=== PATIENT | male | born 1945 | race Hispanic/Latino ===

== ENCOUNTER 2019-04-28 11:23 | Inpatient (IN) | payer MEDICARE ==
[2019-04-28] MEDS ORDERED: SODIUM CHLORIDE 0.9% 500 ML 500 ML IV ONE (12:10)
[2019-04-28] MEDS ORDERED: IPRATROPIUM 0.02% NEBU 2.5 ML IH ONE (12:17)
[2019-04-28] MEDS ORDERED: ALBUTEROL 2.5 MG/3 ML NEBU IH ONE (12:17)
[2019-04-28] MEDS ORDERED: methylPREDNISolone Sod Succinate 125 MG/2 ML INJ IV ONE (12:17)
[2019-04-28 13:03] LABS: Basophils % (Auto) 0.7 % (0.0-1.8); Eosinophils # (Auto) 0.3 K/mm3 (0.0-0.4); Hematocrit 29.1 % (35.5-45.6); Hemoglobin 9.4 gm/dl (11.8-15.2); Lymphocytes # (Auto) 1.1 K/mm3 (1.2-5.4); Lymphocytes % (Auto) 16.3 % (13.4-35.0); Mean Corpuscular HGB Conc 32 % (32-34); Mean Corpuscular Volume 85 fl (84-94); Monocytes # (Auto) 0.5 K/mm3 (0.0-0.8); Monocytes % (Auto) 7.7 % (0.0-7.3); Platelet Count 250 K/mm3 (140-440); Red Blood Count 3.42 M/mm3 (3.65-5.03); Red Cell Distribution Width 19.5 % (13.2-15.2)
[2019-04-28 13:14] LABS: Partial Thromboplastin Time 37.9 Sec. (24.2-36.6)
[2019-04-28 13:15] LABS: Alanine Aminotransferase 11 units/L (7-56); Albumin 4.1 g/dL (3.9-5); BUN/Creatinine Ratio 49; Blood Urea Nitrogen 34 mg/dL (9-20); Calcium 9.8 mg/dL (8.4-10.2); Hemolysis Index 3; INR 1.03 (0.87-1.13)
[2019-04-28] MEDS ORDERED: cefTRIAXone/NS 1 GM/50 ML 1 GM/50 ML BAG IV ONE (13:23)
--- NOTE | 2019-04-28 14:24 | XRay Report ---
CHEST 1 VIEW INDICATION: possible Sepsis. Shortness of breath and chest pain. COMPARISON: None FINDINGS: Support devices: None. Heart: Within normal limits. Lungs/Pleura: No acute air space or interstitial disease. The right costophrenic angle is not include d on this film. Additional findings: None. IMPRESSION: No acute findings. Signer Name: Rommel Pollack Jr, MD Signed: 04/28/2019 2:19 PM Workstation Name: [id number]
--- NOTE | 2019-04-28 14:58 | Cat Scan Report ---
CTA CHEST WITH CONTRAST INDICATION : Pain. TECHNIQUE: Axial imaging performed through the chest, with contrast bolus timing set to maximize opa cification of the pulmonary arteries. Sagittal and coronal reformatted images. 3-plane MIP reformatte d images were obtained. All CT scans at this location are performed using CT dose reduction for ALAR A by means of automated exposure control. 100 mL of intravenous contrast administered. COMPARISON: None FINDINGS: Bolus: Contrast bolus is suboptimal. Most of the IV contrast is present within the aorta. No large c entral pulmonary embolus is identified. Mediastinum: Heart size is within normal limits. Moderate coronary artery calcifications are identif ied. Small pericardial effusion. Moderate aortic calcifications are noted. No aneurysm or dissection . No pathologic mediastinal adenopathy. Calcified right hilar lymph nodes are noted consistent with c hronic granulomatous disease. Lungs: The lungs are clear. No evidence for infiltrate, pleural effusion or pneumothorax. Bones: Degenerative changes in the spine with nothing acute. Upper abdomen: Limited imaging of the upper abdomen shows nothing acute. IMPRESSION: Limited exam. No large central pulmonary embolus is identified. Small pulmonary emboli in the distal small pulmonary arteries cannot be excluded. Small pericardial effusion. Lungs clear. Signer Name: Rommel Pollack Jr, MD Signed: 04/28/2019 2:54 PM Workstation Name: [id number]
[2019-04-28] MEDS ORDERED: ACETAMINOPHEN 325 MG TAB PO PRN ×2 (15:10→20:50)
[2019-04-28] MEDS ORDERED: ONDANSETRON 4 MG/2 ML INJ IV PRN ×2 (15:10→20:50)
[2019-04-28] MEDS ORDERED: HEPARIN 10,000 UNITS/10 ML VIAL IV ONE (15:10)
[2019-04-28 15:11] LABS: Bilirubin,Urine NEG (Negative); Blood,Urine NEG (Negative); Color,Urine Straw (Yellow); Mucus,Urine FEW /HPF; Protein,Urine <15 mg/dL mg/dL (Negative); Urobilinogen,Urine < 2.0 mg/dL (<2.0)
[2019-04-28] MEDS ORDERED: oxyCODONE /ACETAMINOPHEN 5-325MG TAB PO ONE (15:13)
--- NOTE | 2019-04-28 15:14 | Emergency Department Report ---
ED Shortness of Breath HPI - General Chief Complaint: Dyspnea/Respdistress Stated Complaint: TROY Time Seen by Provider: 04/28/19 11:55 Source: patient, EMS Mode of arrival: Stretcher Limitations: Physical Limitation - History of Present Illness Initial Comments: Reports recent ortho knee surgery approximately 1 month ago. MD Complaint: shortness of breath -: Gradual, week(s) (reports worsening. Reports recently treated for same approximately 1 week ago for a presumptive bronchitis which symptoms improved only mildly and then returned. ) Severity: severe Pain Scale: 8 Consistency: other (worsening) Improves With: bronchodilators Worsens With: exertion Context: other (recent surgery) Associated Symptoms: cough, sputum production, other (edema) - Related Data Home Medications Medication Instructions Recorded Confirmed Last Taken AtorvaSTATin [Lipitor] 40 mg PO QHS 04/28/19 04/28/19 Unknown Bisacodyl 10 mg RC QDAY 04/28/19 04/28/19 Unknown Cholecalciferol Vit D3 [Vitamin D3 1,000 unit PO QDAY 04/28/19 04/28/19 Unknown 1,000 UNIT TAB] Clopidogrel [Plavix] 75 mg PO QDAY 04/28/19 04/28/19 Unknown Cyanocobalamin [Vitamin B-12] 1,000 mcg PO DAILY 04/28/19 04/28/19 Unknown Finasteride 5 mg PO QDAY 04/28/19 04/28/19 Unknown Furosemide [Lasix TAB] 40 mg PO QDAY 04/28/19 04/28/19 Unknown Lisinopril [Zestril] 5 mg PO QHS 04/28/19 04/28/19 Unknown Metoprolol [Lopressor] 25 mg PO BID 04/28/19 04/28/19 Unknown Oxycodone HCl/Acetaminophen 1 each PO Q4H PRN 04/28/19 04/28/19 Unknown [Percocet 10/325 mg] Polyethylene Glycol 3350 [Miralax] 17 gm PO QDAY 04/28/19 04/28/19 Unknown Sennosides/Docusate Sodium 1 each PO BID 04/28/19 04/28/19 Unknown [Docuzen 8.6-50 mg Tablet] Tamsulosin [Flomax] 0.4 mg PO QDAY 04/28/19 04/28/19 Unknown Triamterene/Hydrochlorothiazid 1 each PO QAM 04/28/19 04/28/19 Unknown [Dyazide 37.5-25 Capsule] Triamterene/Hydrochlorothiazid 1 each PO QAM 04/28/19 04/28/19 Unknown [Dyazide 37.5-25 Capsule] Ubidecarenone [Coq-10] 200 mg PO QDAY 04/28/19 04/28/19 Unknown glipiZIDE [Glucotrol] 10 mg PO BID 04/28/19 04/28/19 Unknown metFORMIN [Glucophage] 500 mg PO BID 04/28/19 04/28/19 Unknown Allergies Allergy/AdvReac Type Severity Reaction Status Date / Time fentanyl Allergy Vomiting Verified 04/28/19 11:40 gabapentin Allergy Unknown Verified 04/28/19 11:40 ketorolac [From Toradol] Allergy Anaphylaxis Verified 04/28/19 11:40 ED Review of Systems ROS: Stated complaint: TROY Other details as noted in HPI Other: GENERAL: No weight change, fatigue, fever, chills, or night sweats SKIN: No changes in skin or hair, no itching, no rashes, no jaundice HEAD: No trauma EYES: No blurriness, tearing, itching, acute visual loss, conjunctival discoloration, or scleral icterus EARS: No hearing loss, tinnitus, vertigo, or earache NOSE: No rhinorrhea, stuffiness, sneezing, itching, or epistaxis MOUTH: No bleeding gums, hoarseness, sore throat, or swelling CARDIAC: Edema. No new murmur, chest pain, palpitations, dyspnea on exertion, orthopnea, PND RESPIRATORY: Shortness of breath, wheeze, cough, sputum production. Denies hemoptysis GI: No nausea, vomiting, dysphagia, diarrhea, constipation, hematemesis, melena, hematochezia, or abdominal pain URINARY: No frequency, urgency, polyuria, dysuria, hematuria, or incontinence MUSCULOSKELETAL: No muscle weakness, joint stiffness, decrease in range of motion, redness, swelling NEUROLOGIC: No headache, syncope, loss of sensation, numbness, tingling, tremors, weakness, paralysis, seizures HEMATOLOGIC: No anemia, easy bruising, bleeding, petechiae, or purpura ENDOCRINE: No hot or cold intolerance, sweating, polyuria, polydipsia or, prashant yphagia no thyroid problems PSYCHIATRIC: No change in mood, no anxiety, no depression ED Past Medical Hx - Past Medical History Previous Medical History?: Yes Hx Hypertension: Yes Hx Diabetes: Yes Additional medical history: AAA - Surgical History Past Surgical History?: Yes Additional Surgical History: L4-L5 sx. multiple bilateral knee replacements. Most recent to right knee on 04/11/19. - Social History Smoking Status: Former Smoker Substance Use Type: None - Medications Home Medications: Home Medications Medication Instructions Recorded Confirmed Last Taken Type AtorvaSTATin [Lipitor] 40 mg PO QHS 04/28/19 04/28/19 Unknown History Bisacodyl 10 mg RC QDAY 04/28/19 04/28/19 Unknown History Cholecalciferol Vit D3 [Vitamin D3 1,000 unit PO QDAY 04/28/19 04/28/19 Unknown History 1,000 UNIT TAB] Clopidogrel [Plavix] 75 mg PO QDAY 04/28/19 04/28/19 Unknown History Cyanocobalamin [Vitamin B-12] 1,000 mcg PO DAILY 04/28/19 04/28/19 Unknown History Finasteride 5 mg PO QDAY 04/28/19 04/28/19 Unknown History Furosemide [Lasix TAB] 40 mg PO QDAY 04/28/19 04/28/19 Unknown History Lisinopril [Zestril] 5 mg PO QHS 04/28/19 04/28/19 Unknown History Metoprolol [Lopressor] 25 mg PO BID 04/28/19 04/28/19 Unknown History Oxycodone HCl/Acetaminophen 1 each PO Q4H PRN 04/28/19 04/28/19 Unknown History [Percocet 10/325 mg] Polyethylene Glycol 3350 [Miralax] 17 gm PO QDAY 04/28/19 04/28/19 Unknown History Sennosides/Docusate Sodium 1 each PO BID 04/28/19 04/28/19 Unknown History [Docuzen 8.6-50 mg Tablet] Tamsulosin [Flomax] 0.4 mg PO QDAY 04/28/19 04/28/19 Unknown History Triamterene/Hydrochlorothiazid 1 each PO QAM 04/28/19 04/28/19 Unknown History [Dyazide 37.5-25 Capsule] Triamterene/Hydrochlorothiazid 1 each PO QAM 04/28/19 04/28/19 Unknown History [Dyazide 37.5-25 Capsule] Ubidecarenone [Coq-10] 200 mg PO QDAY 04/28/19 04/28/19 Unknown History glipiZIDE [Glucotrol] 10 mg PO BID 04/28/19 04/28/19 Unknown History metFORMIN [Glucophage] 500 mg PO BID 04/28/19 04/28/19 Unknown History ED Physical Exam - General Limitations: Physical Limitation - Other Other exam information: GENERAL: Patient in acute distress HEAD: Normocephalic, atraumatic EYES: PERRLA, EOM intact, no scleral icterus, no conjunctival hemorrhage, visual alcocer and acuity wnl NOSE: No tenderness, discharge, sinus tenderness MOUTH: No erythema, bleeding, exudate HEART: Tachycardia, no murmur, S1-S2 are auscultated, no edema, pulses are symmetric LUNGS: mild respiratory distress. Bilateral breath sounds, tachypnea, mild retractions, mild wheezing, rales, No rhonchi ABDOMEN: Normal bowel sounds, abdomen soft, no tenderness, no rebound, no guarding, no distention, no masses, no CVA tenderness MUSCULOSKELETAL: Normal joint range of motion, no redness, no swelling, no tenderness NEUROLOGIC: GCS 15, Alert and Oriented x3, Cranial nerves intact, normal sensation, normal strength, no cerebellar deficit, NIHSS 0 SKIN: Skin is warm and dry, no wounds, no rashes ED Course Vital Signs 04/28/19 04/28/19 04/28/19 11:37 11:40 11:46 Temperature 98.1 F Pulse Rate 112 H 111 H 107 H Pulse Rate [ Bilateral Throughout] Respiratory 15 14 13 Rate Respiratory Rate [Bilateral Throughout] Blood Pressure 121/59 121/59 O2 Sat by Pulse 96 92 95 Oximetry 04/28/19 04/28/19 04/28/19 11:56 12:00 12:10 Temperature Pulse Rate 107 H 106 H Pulse Rate [ Bilateral Throughout] Respiratory 13 16 21 Rate Respiratory Rate [Bilateral Throughout] Blood Pressure 99/59 89/59 O2 Sat by Pulse 96 95 95 Oximetry 04/28/19 04/28/19 04/28/19 12:20 12:29 12:30 Temperature Pulse Rate 110 H 109 H Pulse Rate [ 108 H Bilateral Throughout] Respiratory 20 22 Rate Respiratory 18 Rate [Bilateral Throughout] Blood Pressure 89/59 89/62 O2 Sat by Pulse 93 94 Oximetry 04/28/19 04/28/19 04/28/19 12:40 12:50 13:00 Temperature Pulse Rate 106 H 104 H 107 H Pulse Rate [ Bilateral Throughout] Respiratory 22 19 21 Rate Respiratory Rate [Bilateral Throughout] Blood Pressure 115/63 104/60 94/60 O2 Sat by Pulse 97 96 97 Oximetry 04/28/19 04/28/19 04/28/19 13:10 13:20 13:30 Temperature Pulse Rate 109 H 108 H 106 H Pulse Rate [ Bilateral Throughout] Respiratory 16 17 14 Rate Respiratory Rate [Bilateral Throughout] Blood Pressure 104/56 101/48 89/53 O2 Sat by Pulse 98 98 98 Oximetry 04/28/19 04/28/19 04/28/19 13:40 13:50 14:00 Temperature Pulse Rate 109 H 100 H 99 H Pulse Rate [ Bilateral Throughout] Respiratory 13 24 20 Rate Respiratory Rate [Bilateral Throughout] Blood Pressure 100/52 109/52 109/48 O2 Sat by Pulse 97 93 96 Oximetry 04/28/19 04/28/19 04/28/19 14:36 14:46 15:00 Temperature Pulse Rate 102 H 104 H 105 H Pulse Rate [ Bilateral Throughout] Respiratory 20 17 Rate Respiratory Rate [Bilateral Throughout] Blood Pressure 118/55 135/90 133/65 O2 Sat by Pulse 98 95 Oximetry 04/28/19 04/28/19 04/28/19 15:15 15:30 15:45 Temperature Pulse Rate 99 H 97 H 100 H Pulse Rate [ Bilateral Throughout] Respiratory 16 21 20 Rate Respiratory Rate [Bilateral Throughout] Blood Pressure 116/61 128/59 121/66 O2 Sat by Pulse 94 95 94 Oximetry 04/28/19 04/28/19 04/28/19 16:00 16:15 16:30 Temperature Pulse Rate 102 H 103 H 102 H Pulse Rate [ Bilateral Throughout] Respiratory 19 17 19 Rate Respiratory Rate [Bilateral Throughout] Blood Pressure 123/64 126/61 136/66 O2 Sat by Pulse 97 94 94 Oximetry 04/28/19 04/28/19 16:45 17:00 Temperature Pulse Rate 108 H 106 H Pulse Rate [ Bilateral Throughout] Respiratory 15 14 Rate Respiratory Rate [Bilateral Throughout] Blood Pressure 142/61 116/59 O2 Sat by Pulse 97 96 Oximetry ED Medical Decision Making - Lab Data Result diagrams: 04/29/19 03:53 04/29/19 03:53 Laboratory Tests 04/28/19 04/28/19 04/28/19 12:17 12:17 12:17 WBC 7.0 RBC 3.42 L Hgb 9.4 L Hct 29.1 L MCV 85 MCH 27 L MCHC 32 RDW 19.5 H Plt Count 250 Lymph % (Auto) 16.3 [place] % (Auto) 7.7 H Eos % (Auto) 4.0 Baso % (Auto) 0.7 Lymph # 1.1 L [place]itt # 0.5 Eos # 0.3 Baso # 0.0 Seg Neutrophils % 71.3 H Seg Neutrophils # 5.0 PT 13.4 INR 1.03 APTT 37.9 H POC ABG pH POC ABG pCO2 POC ABG pO2 POC ABG HCO3 POC ABG Total CO2 POC ABG O2 Sat POC ABG Base Excess VBG pH FiO2 Sodium 135 L Potassium 4.5 Chloride 92.2 L Carbon Dioxide 28 Anion Gap 19 BUN 34 H Creatinine 0.7 L Estimated GFR > 60 BUN/Creatinine Ratio 49 Glucose 177 H Hemoglobin A1c Lactic Acid Calcium 9.8 Total Bilirubin 0.40 AST 10 ALT 11 Alkaline Phosphatase 84 Troponin T NT-Pro-B Natriuret Pep Total Protein 7.8 Albumin 4.1 Albumin/Globulin Ratio 1.1 Urine Color Urine Turbidity Urine pH Ur Specific [place] Urine Protein Urine Glucose (UA) Urine Ketones Urine Blood Urine Nitrite Urine Bilirubin Urine Urobilinogen Ur Leukocyte Esterase Urine WBC (Auto) Urine RBC (Auto) U Epithel Cells (Auto) Urine Mucus 04/28/19 04/28/19 04/28/19 12:17 12:17 12:17 WBC RBC Hgb Hct MCV MCH MCHC RDW Plt Count Lymph % (Auto) [place] % (Auto) Eos % (Auto) Baso % (Auto) Lymph # [place] # Eos # Baso # Seg Neutrophils % Seg Neutrophils # PT INR APTT POC ABG pH POC ABG pCO2 POC ABG pO2 POC ABG HCO3 POC ABG Total CO2 POC ABG O2 Sat POC ABG Base Excess VBG pH 7.373 FiO2 Sodium Potassium Chloride Carbon Dioxide Anion Gap BUN Creatinine Estimated GFR BUN/Creatinine Ratio Glucose Hemoglobin A1c 6.2 H Lactic Acid 2.20 H* Calcium Total Bilirubin AST ALT Alkaline Phosphatase Troponin T NT-Pro-B Natriuret Pep Total Protein Albumin Albumin/Globulin Ratio Urine Color Urine Turbidity Urine pH Ur Specific [place] Urine Protein Urine Glucose (UA) Urine Ketones Urine Blood Urine Nitrite Urine Bilirubin Urine Urobilinogen Ur Leukocyte Esterase Urine WBC (Auto) Urine RBC (Auto) U Epithel Cells (Auto) Urine Mucus 04/28/19 04/28/19 04/28/19 12:29 13:00 14:43 WBC RBC Hgb Hct MCV MCH MCHC RDW Plt Count Lymph % (Auto) [place] % (Auto) Eos % (Auto) Baso % (Auto) Lymph # [place] # Eos # Baso # Seg Neutrophils % Seg Neutrophils # PT INR APTT POC ABG pH 7.430 POC ABG pCO2 47.1 H POC ABG pO2 76 L POC ABG HCO3 31.2 POC ABG Total CO2 33 POC ABG O2 Sat 95 POC ABG Base Excess 7 VBG pH FiO2 28 Sodium Potassium Chloride Carbon Dioxide Anion Gap BUN Creatinine Estimated GFR BUN/Creatinine Ratio Glucose Hemoglobin A1c Lactic Acid 2.40 H* Calcium Total Bilirubin AST ALT Alkaline Phosphatase Troponin T < 0.010 NT-Pro-B Natriuret Pep 97.70 Total Protein Albumin Albumin/Globulin Ratio Urine Color Urine Turbidity Urine pH Ur Specific [place] Urine Protein Urine Glucose (UA) Urine Ketones Urine Blood Urine Nitrite Urine Bilirubin Urine Urobilinogen Ur Leukocyte Esterase Urine WBC (Auto) Urine RBC (Auto) U Epithel Cells (Auto) Urine Mucus 04/28/19 14:49 WBC RBC Hgb Hct MCV MCH MCHC RDW Plt Count Lymph % (Auto) [place] % (Auto) Eos % (Auto) Baso % (Auto) Lymph # [place] # Eos # Baso # Seg Neutrophils % Seg Neutrophils # PT INR APTT POC ABG pH POC ABG pCO2 POC ABG pO2 POC ABG HCO3 POC ABG Total CO2 POC ABG O2 Sat POC ABG Base Excess VBG pH FiO2 Sodium Potassium Chloride Carbon Dioxide Anion Gap BUN Creatinine Estimated GFR BUN/Creatinine Ratio Glucose Hemoglobin A1c Lactic Acid Calcium Total Bilirubin AST ALT Alkaline Phosphatase Troponin T NT-Pro-B Natriuret Pep Total Protein Albumin Albumin/Globulin Ratio Urine Color Straw Urine Turbidity Clear Urine pH 6.0 Ur Specific [place] 1.048 H Urine Protein <15 mg/dl Urine Glucose (UA) Neg Urine Ketones Neg Urine Blood Neg Urine Nitrite Neg Urine Bilirubin Neg Urine Urobilinogen < 2.0 Ur Leukocyte Esterase Neg Urine WBC (Auto) 1.0 Urine RBC (Auto) 2.0 U Epithel Cells (Auto) < 1.0 Urine Mucus Few - EKG Data When compared to previous EKG there are: changes noted - Radiology Data Radiology results: report reviewed - Medical Decision Making Patient comfortable. Reports symptom improvement. Updated with results. Plan admit for further evaluation. Hospitalist updated and accepts admission. Critical Care Time: Yes Critical care time in (mins) excluding proc time.: 42 Critical care attestation.: If time is entered above; I have spent that time in minutes in the direct care of this critically ill patient, excluding procedure time. 42 ED Disposition Clinical Impression: Acute bronchospasm Pulmonary embolism Qualifiers: Pulmonary embolism type: unspecified Chronicity: acute Acute cor pulmonale presence: unspecified Qualified Code(s): I26.99 - Other pulmonary embolism without acute cor pulmonale Disposition: [id number] OP ADMIT IP TO THIS HOSP Is pt being admited?: Yes Condition: Stable
[2019-04-28] MEDS: HEPARIN/ 0.45% NACL DRIP 25,000 UNIT/500 ML BAG IV SCH (15:58)
[2019-04-28] MEDS ORDERED: NON-FORMULARY EACH (Oxycodone Hcl/Acetaminophen [Percocet 10/325 Mg] 1 EACH) PO PRN (20:46)
[2019-04-28] MEDS ORDERED: HYDROmorphone 1 MG/1 ML INJ IV PRN (20:50)
[2019-04-28] MEDS ORDERED: UBIDECARENONE 200 MG PO SCH (21:00)
--- NOTE | 2019-04-28 21:03 | History and Physical Report ---
History of Present Illness Date of examination: 04/28/19 Date of admission: 04/28/19 15:10 Chief complaint: Dyspnea on exertion for 1 day History of present illness: 73-year-old male with multiple medical problems including type 2 diabetes hypertension and BPH comes in for increasing shortness of breath and did dyspnea on exertion of one day duration. No fever or chills. No recent travel. No chest pain. No diaphoresis or palpitations. No orthopnea. Exacerbating factor is exertion. Relieved by rest. Patient had a recent right knee arthroplasty on 04/11/2019. Past Medical History Previous Medical History?: Yes Hypertension: Yes Diabetes: Yes Additional medical history: AAA BPH Vitamin D deficiency Surgical History Past Surgical History?: Yes Additional Surgical History: L4-L5 sx. multiple bilateral knee replacements. Most recent to right knee on 04/11/19. Social History Smoking Status: Former Smoker Substance Use Type: Non Family history HTN T2dm Medications and Allergies Allergies Allergy/AdvReac Type Severity Reaction Status Date / Time fentanyl Allergy Vomiting Verified 04/28/19 11:40 gabapentin Allergy Unknown Verified 04/28/19 11:40 ketorolac [From Toradol] Allergy Anaphylaxis Verified 04/28/19 11:40 Home Medications Medication Instructions Recorded Confirmed Last Taken Type AtorvaSTATin [Lipitor] 40 mg PO QHS 04/28/19 04/28/19 Unknown History Bisacodyl 10 mg RC QDAY 04/28/19 04/28/19 Unknown History Cholecalciferol Vit D3 [Vitamin D3 1,000 unit PO QDAY 04/28/19 04/28/19 Unknown History 1,000 UNIT TAB] Clopidogrel [Plavix] 75 mg PO QDAY 04/28/19 04/28/19 Unknown History Cyanocobalamin [Vitamin B-12] 1,000 mcg PO DAILY 04/28/19 04/28/19 Unknown History Finasteride 5 mg PO QDAY 04/28/19 04/28/19 Unknown History Furosemide [Lasix TAB] 40 mg PO QDAY 04/28/19 04/28/19 Unknown History Lisinopril [Zestril] 5 mg PO QHS 04/28/19 04/28/19 Unknown History Metoprolol [Lopressor] 25 mg PO BID 04/28/19 04/28/19 Unknown History Oxycodone HCl/Acetaminophen 1 each PO Q4H PRN 04/28/19 04/28/19 Unknown History [Percocet 10/325 mg] Polyethylene Glycol 3350 [Miralax] 17 gm PO QDAY 04/28/19 04/28/19 Unknown History Sennosides/Docusate Sodium 1 each PO BID 04/28/19 04/28/19 Unknown History [Docuzen 8.6-50 mg Tablet] Tamsulosin [Flomax] 0.4 mg PO QDAY 04/28/19 04/28/19 Unknown History Triamterene/Hydrochlorothiazid 1 each PO QAM 04/28/19 04/28/19 Unknown History [Dyazide 37.5-25 Capsule] Triamterene/Hydrochlorothiazid 1 each PO QAM 04/28/19 04/28/19 Unknown History [Dyazide 37.5-25 Capsule] Ubidecarenone [Coq-10] 200 mg PO QDAY 04/28/19 04/28/19 Unknown History glipiZIDE [Glucotrol] 10 mg PO BID 04/28/19 04/28/19 Unknown History metFORMIN [Glucophage] 500 mg PO BID 04/28/19 04/28/19 Unknown History Active Meds: Active Medications Acetaminophen (Tylenol) 650 mg PO Q4H PRN PRN Reason: Pain MILD(1-3)/Fever >100.5/ANTON Acetaminophen (Tylenol) 650 mg PO Q4H PRN PRN Reason: Pain MILD(1-3)/Fever >100.5/ANTON Atorvastatin Calcium (Lipitor) 40 mg PO QHS [facility] Cholecalciferol (Vitamin D3) 1,000 unit PO QDAY [facility] Clopidogrel Bisulfate (Plavix) 75 mg PO QDAY [facility] Cyanocobalamin (Vitamin B-12) 1,000 mcg PO DAILY [facility] Famotidine (Pepcid) 20 mg IV BID [facility] Finasteride (Proscar) 5 mg PO QDAY [facility] Furosemide (Lasix) 40 mg PO QDAY [facility] Glipizide (Glucotrol) 10 mg PO BID [facility] Hydromorphone HCl (Dilaudid) 0.5 mg IV Q3H PRN PRN Reason: Pain , Severe (7-10) Heparin Sodium/Sodium Chloride (Heparin/ 0.45% Nacl-25,000 Unit/500 Ml) 25,000 unit in 500 mls @ 30 mls/hr IV TITR [facility]; Protocol Last Admin: 04/28/19 15:58 Dose: 1,500 units/hr, 30 mls/hr Documented by: Sodium Chloride (Nacl 0.9% 1000 Ml) 1,000 mls @ 75 mls/hr IV DIRECT [facility] Stop: 04/29/19 21:59 Insulin Human Lispro (Humalog) 0 unit SUB-Q ACHS [facility]; Protocol Lisinopril (Zestril) 5 mg PO QHS [facility] Metformin HCl (Glucophage) 500 mg PO BID [facility] Metoprolol Tartrate (Metoprolol) 25 mg PO BID [facility] Miscellaneous Medication (Oxycodone Hcl/Acetaminophen [Percocet 10/325 Mg]) 1 each PO Q4H PRN PRN Reason: PAIN Miscellaneous Medication (Polyethylene Glycol 3350 [Miralax]) 17 gm PO QDAY [facility] Miscellaneous Medication (Triamterene/Hydrochlorothiazid [Dyazide 37.5-25 Ca psule]) 1 each PO QAM [facility] Miscellaneous Medication (Ubidecarenone [Coq-10]) 200 mg PO QDAY [facility] Ondansetron HCl (Zofran) 4 mg IV Q8H PRN PRN Reason: Nausea And Vomiting Ondansetron HCl (Zofran) 4 mg IV Q8H PRN PRN Reason: Nausea And Vomiting Sodium Chloride (Sodium Chloride Flush Syringe 10 Ml) 10 ml IV BID [facility] Last Admin: 04/28/19 20:31 Dose: 10 ml Documented by: Sodium Chloride (Sodium Chloride Flush Syringe 10 Ml) 10 ml IV PRN PRN PRN Reason: LINE FLUSH Sodium Chloride (Sodium Chloride Flush Syringe 10 Ml) 10 ml IV BID [facility] Sodium Chloride (Sodium Chloride Flush Syringe 10 Ml) 10 ml IV PRN PRN PRN Reason: LINE FLUSH Tamsulosin HCl (Flomax) 0.4 mg PO QDAY [facility] Review of Systems All systems: negative Constitutional: no weight loss, no weight gain, no fever, no chills, no sweats, no night sweats Ears, nose, mouth and throat: no ear pain, no ear discharge, no tinnitis, no decreased hearing, no nose pain, no nasal congestion, no nasal discharge, no sinus pressure, no sinus pain Cardiovascular: shortness of breath, dyspnea on exertion Respiratory: shortness of breath, dyspnea on exertion Gastrointestinal: no abdominal pain, no nausea, no vomiting, no diarrhea, no constipation, no change in bowel habits, no hematemesis, no coffee ground emesis Genitourinary Male: urinary frequency, urinary hesitancy, no dysuria, no hematuria, no flank pain, no nocturia, no incontinence, no erectile dysfunction, no genital pain Rectal: no pain Musculoskeletal: no neck stiffness, no neck pain, no shooting arm pain, no arm numbness/tingling, no low back pain, no shooting leg pain, no leg numbness/tingling, no redness of joints Integumentary: no rash, no pruritis, no redness, no sores, no wounds, no jaundice, no boils, no blisters Neurological: no seizures, no syncope Psychiatric: no anxiety, no memory loss, no change in sleep habits, no sleep disturbances, no insomnia, no hypersomnia Endocrine: no cold intolerance, no heat intolerance, no polyphagia, no excessive thirst, no polydipsia, no polyuria Hematologic/Lymphatic: no easy bruising, no easy bleeding Allergic/Immunologic: no urticaria, no allergic rhinitis, no wheezing Exam - Constitutional Vitals: Temp Pulse Resp BP Pulse Ox 98.1 F 106 H 14 116/59 96 04/28/19 11:40 04/28/19 17:00 04/28/19 17:00 04/28/19 17:00 04/28/19 17:00 General appearance: Present: no acute distress, well-nourished - EENT Eyes: Present: PERRL ENT: hearing intact, clear oral mucosa - Neck Neck: Present: supple, normal ROM - Respiratory Respiratory effort: normal Respiratory: bilateral: CTA - Cardiovascular Heart rate: 78 Rhythm: regular Heart Sounds: Present: S1 & S2. Absent: rub, click - Extremities Extremities: no ischemia, pulses intact, pulses symmetrical, No edema Peripheral Pulses: within normal limits - Abdominal General gastrointestinal: Present: soft, non-tender, non-distended, normal bowel sounds Male genitourinary: Present: normal - Rectal Rectal Exam: deferred - Integumentary Integumentary: Present: clear, warm, dry - Musculoskeletal Musculoskeletal: gait normal, strength equal bilaterally - Psychiatric Psychiatric: appropriate mood/affect, intact judgment & insight - Neurologic Neurologic: CNII-XII intact, moves all extremities - Allied Health Allied health notes reviewed: nursing, case management Results - Labs CBC & Chem 7: 04/28/19 12:17 04/28/19 12:17 Labs: Laboratory Last Values WBC 7.0 K/mm3 (4.5-11.0) 04/28/19 12:17 RBC 3.42 M/mm3 (3.65-5.03) L 04/28/19 12:17 Hgb 9.4 gm/dl (11.8-15.2) L 04/28/19 12:17 Hct 29.1 % (35.5-45.6) L 04/28/19 12:17 MCV 85 fl (84-94) 04/28/19 12:17 MCH 27 pg (28-32) L 04/28/19 12:17 MCHC 32 % (32-34) 04/28/19 12:17 RDW 19.5 % (13.2-15.2) H 04/28/19 12:17 Plt Count 250 K/mm3 (140-440) 04/28/19 12:17 Lymph % (Auto) 16.3 % (13.4-35.0) 04/28/19 12:17 [place] % (Auto) 7.7 % (0.0-7.3) H 04/28/19 12:17 Eos % (Auto) 4.0 % (0.0-4.3) 04/28/19 12:17 Baso % (Auto) 0.7 % (0.0-1.8) 04/28/19 12:17 Lymph # 1.1 K/mm3 (1.2-5.4) L 04/28/19 12:17 [place] # 0.5 K/mm3 (0.0-0.8) 04/28/19 12:17 Eos # 0.3 K/mm3 (0.0-0.4) 04/28/19 12:17 Baso # 0.0 K/mm3 (0.0-0.1) 04/28/19 12:17 Seg Neutrophils % 71.3 % (40.0-70.0) H 04/28/19 12:17 Seg Neutrophils # 5.0 K/mm3 (1.8-7.7) 04/28/19 12:17 PT 13.4 Sec. (12.2-14.9) 04/28/19 12:17 INR 1.03 (0.87-1.13) 04/28/19 12:17 APTT 37.9 Sec. (24.2-36.6) H 04/28/19 12:17 POC ABG pH 7.430 (7.35-7.45) 04/28/19 13:00 POC ABG pCO2 47.1 (35-45) H 04/28/19 13:00 POC ABG pO2 76 (80-105) L 04/28/19 13:00 POC ABG HCO3 31.2 (22-26 mml/L) 04/28/19 13:00 POC ABG Total CO2 33 (23-27mmol/L) 04/28/19 13:00 POC ABG O2 Sat 95 04/28/19 13:00 POC ABG Base Excess 7 ((-2) - (+3)mmol/L) 04/28/19 13:00 VBG pH 7.373 (7.320-7.420) 04/28/19 12:17 FiO2 28 % 04/28/19 13:00 Sodium 135 mmol/L (137-145) L 04/28/19 12:17 Potassium 4.5 mmol/L (3.6-5.0) 04/28/19 12:17 Chloride 92.2 mmol/L (98-107) L 04/28/19 12:17 Carbon Dioxide 28 mmol/L (22-30) 04/28/19 12:17 Anion Gap 19 mmol/L 04/28/19 12:17 BUN 34 mg/dL (9-20) H 04/28/19 12:17 Creatinine 0.7 mg/dL (0.8-1.5) L 04/28/19 12:17 Estimated GFR > 60 ml/min 04/28/19 12:17 BUN/Creatinine Ratio 49 % 04/28/19 12:17 Glucose 177 mg/dL (75-100) H 04/28/19 12:17 Lactic Acid 2.40 mmol/L (0.7-2.0) H* 04/28/19 14:43 Calcium 9.8 mg/dL (8.4-10.2) 04/28/19 12:17 Total Bilirubin 0.40 mg/dL (0.1-1.2) 04/28/19 12:17 AST 10 units/L (5-40) 04/28/19 12:17 ALT 11 units/L (7-56) 04/28/19 12:17 Alkaline Phosphatase 84 units/L (35-129) 04/28/19 12:17 Troponin T < 0.010 ng/mL (0.00-0.029) 04/28/19 12:29 NT-Pro-B Natriuret Pep 97.70 pg/mL (0-900) 04/28/19 12:29 Total Protein 7.8 g/dL (6.3-8.2) 04/28/19 12:17 Albumin 4.1 g/dL (3.9-5) 04/28/19 12:17 Albumin/Globulin Ratio 1.1 % 04/28/19 12:17 Urine Color Straw (Yellow) 04/28/19 14:49 Urine Turbidity Clear (Clear) 04/28/19 14:49 Urine pH 6.0 (5.0-7.0) 04/28/19 14:49 Ur Specific [place] 1.048 (1.003-1.030) H 04/28/19 14:49 Urine Protein <15 mg/dl mg/dL (Negative) 04/28/19 14:49 Urine Glucose (UA) Neg mg/dL (Negative) 04/28/19 14:49 Urine Ketones Neg mg/dL (Negative) 04/28/19 14:49 Urine Blood Neg (Negative) 04/28/19 14:49 Urine Nitrite Neg (Negative) 04/28/19 14:49 Urine Bilirubin Neg (Negative) 04/28/19 14:49 Urine Urobilinogen < 2.0 mg/dL (<2.0) 04/28/19 14:49 Ur Leukocyte Esterase Neg (Negative) 04/28/19 14:49 Urine WBC (Auto) 1.0 /HPF (0.0-6.0) 04/28/19 14:49 Urine RBC (Auto) 2.0 /HPF (0.0-6.0) 04/28/19 14:49 U Epithel Cells (Auto) < 1.0 /HPF (0-13.0) 04/28/19 14:49 Urine Mucus Few /HPF 04/28/19 14:49 Short CBC 04/28/19 Range/Units 12:17 WBC 7.0 (4.5-11.0) K/mm3 Hgb 9.4 L (11.8-15.2) gm/dl Hct 29.1 L (35.5-45.6) % Plt Count 250 (140-440) K/mm3 BMP 04/28/19 12:17 Sodium 135 L Potassium 4.5 Chloride 92.2 L Carbon Dioxide 28 BUN 34 H Creatinine 0.7 L Glucose 177 H Calcium 9.8 Cardiac Enzymes 04/28/19 Range/Units 12:29 Troponin T < 0.010 (0.00-0.029) ng/mL Liver Function 04/28/19 Range/Units 12:17 Total Bilirubin 0.40 (0.1-1.2) mg/dL AST 10 (5-40) units/L ALT 11 (7-56) units/L Alkaline Phosphatase 84 (35-129) units/L Albumin 4.1 (3.9-5) g/dL Urine 04/28/19 Range/Units 14:49 Urine Color Straw (Yellow) Urine pH 6.0 (5.0-7.0) Ur Specific [place] 1.048 H (1.003-1.030) Urine Protein <15 mg/dl (Negative) mg/dL Urine Glucose (UA) Neg (Negative) mg/dL - Imaging and Cardiology EKG: report reviewed Chest x-ray: report reviewed CT scan - chest: report reviewed Imaging and Cardiology: CTA chest IMPRESSION: Limited exam. No large central pulmonary embolus is identified. Small pulmonary emboli in the distal small pulmonary arteries cannot be excluded. Small pericardial effusion. Lungs clear. Assessment and Plan Advance Directives: Yes (full code) VTE prophylaxis?: Chemical Plan of care discussed with patient/family: Yes - Patient Problems (1) Acute pulmonary embolism Current Visit: Yes Status: Acute Qualifiers: Acute cor pulmonale presence: without acute cor pulmonale Plan to address problem: Patient initiated on IV heparin Patient may be switched to ELIQUIS tomorrow No acute cor pulmonale No need for EKOS (2) Hyponatremia Current Visit: Yes Status: Acute Plan to address problem: Mild IV normal saline for now (3) T2DM (type 2 diabetes mellitus) Current Visit: Yes Status: Chronic Qualifiers: Diabetes mellitus [place] insulin use: without [place] use Plan to address problem: Continue glipizide and coverage Check hemoglobin A1c (4) Hypertension Current Visit: Yes Status: Chronic Qualifiers: Hypertension type: essential hypertension Qualified Code(s): I10 - Essenti al (primary) hypertension Plan to address problem: Continue antihypertensives (5) BPH (benign prostatic hyperplasia) Current Visit: Yes Status: Chronic Qualifiers: Lower urinary tract symptom presence: symptoms present Plan to address problem: Continue finasteride and tamsulosin (6) Hyperlipidemia Current Visit: Yes Status: Chronic Qualifiers: Hyperlipidemia type: mixed hyperlipidemia Qualified Code(s): E78.2 - Mixed hyperlipidemia Plan to address problem: Continue statins (7) Vitamin D deficiency Current Visit: Yes Status: Chronic Plan to address problem: Continue vitamin D (8) Coronary artery disease Current Visit: Yes Status: Chronic Qualifiers: Coronary Disease-Associated Artery/Lesion type: [place] artery Associated angina: without angina Plan to address problem: Continue Plavix Plavix may be discontinued when ELIQUIS is started (9) CHF (congestive heart failure) Current Visit: Yes Status: Chronic Qualifiers: Heart failure type: combined systolic and diastolic Plan to address problem: Continue Lasix (10) DVT prophylaxis Current Visit: Yes Status: Acute Plan to address problem: Patient on heparin drip and GI prophylaxis
[2019-04-28] MEDS: glipiZIDE 10 MG TAB PO SCH (21:29)
[2019-04-28] MEDS: metFORMIN 500 MG TAB PO SCH (21:29)
[2019-04-28] MEDS: FAMOTIDINE 20 MG/2 ML INJ IV SCH (21:29)
[2019-04-28] MEDS: METOPROLOL TARTRATE 25 MG TAB PO SCH (21:30)
[2019-04-28] MEDS: LISINOPRIL 5 MG TAB PO SCH (21:30)
[2019-04-28] MEDS: oxyCODONE /ACETAMINOPHEN 5-325MG TAB PO PRN (21:30)
[2019-04-28] MEDS ORDERED: SODIUM CHLORIDE 0.9% 1000 ML 1,000 ML IV SCH (22:00)
[2019-04-28] MEDS: INSULIN LISPRO 100 UNIT/ML SUB-Q SCH (23:42)
[2019-04-29 04:39] LABS: Hematocrit 27.6 % (35.5-45.6); Hemoglobin 8.8 gm/dl (11.8-15.2); Mean Corpuscular HGB Conc 32 % (32-34); Mean Corpuscular Volume 86 fl (84-94); Platelet Count 233 K/mm3 (140-440)
[2019-04-29 04:44] LABS: Red Cell Distribution Width 20.3 % (13.2-15.2)
[2019-04-29 05:06] LABS: Alanine Aminotransferase 10 units/L (7-56); Albumin 3.8 g/dL (3.9-5); BUN/Creatinine Ratio 40; Blood Urea Nitrogen 36 mg/dL (9-20); Calcium 9.4 mg/dL (8.4-10.2); Hemolysis Index 4
[2019-04-29 07:03] LABS: Basophils % (Manual) 0 % (0.0-1.8); Eosinophils % (Manual) 0 % (0.0-4.3); Monocytes % (Manual) 0 % (0.0-7.3); Total Cells Counted 100
[2019-04-29 07:04] LABS: Macrocytosis Few; Tear Drop Cells Rare
[2019-04-29 07:05] LABS: Platelet Estimate Consistent w Auto
[2019-04-29] MEDS: HEPARIN/ 0.45% NACL DRIP 25,000 UNIT/500 ML BAG IV SCH (08:18)
[2019-04-29] MEDS: oxyCODONE /ACETAMINOPHEN 5-325MG TAB PO PRN ×3 (08:18→20:58)
[2019-04-29] MEDS: INSULIN LISPRO 100 UNIT/ML SUB-Q SCH ×4 (08:22→21:11)
--- NOTE | 2019-04-29 09:04 | Progress Note ---
Assessment and Plan Assessment and plan: (1) Acute pulmonary embolism Patient had right patellar surgery on 04/15/19 and has been bed ridden since then Patient initiated on IV heparin and switched to ELIQUIS today No acute cor pulmonale No need for EKOS COPD exacerbation - Patient is on IV solumedrol, Duonebs and oxygen support (2) Hyponatremia Mild IV normal saline for now (3) T2DM (type 2 diabetes mellitus) Well controlled A1c is 6.2 Continue glipizide and coverage (4) Hypertension Well controlled Continue antihypertensives (5) BPH (benign prostatic hyperplasia) Continue finasteride and tamsulosin (6) Hyperlipidemia Continue statins (7) Vitamin D deficiency Current Visit: Yes Status: Chronic Plan to address problem: Continue vitamin D (8) Coronary artery disease - Continue eliquis (9) CHF (congestive heart failure) Heart failure type: combined systolic and diastolic Continue Lasix No echo record found (10) DVT prophylaxis - Continue therapeutic eliquis Disposition; possible DC tomorrow if patient's SOB and wheezing is getting better. History Interval history: Patient was seen and evaluated this morning, patient has some SOB. patient had a lot of wheezing. Hospitalist Physical - Physical exam Narrative exam: Not in cardiopulmonary distress. The patient appeared well nourished and normally developed. Vital signs as documented. Head exam is unremarkable. No scleral icterus . Neck is without jugular venous distension, thyromegaly, or carotid bruits. Lungs wheezing gone over the chest. Cardiac exam reveals regular rate and Rhythm. Abdominal exam reveals normal bowel sounds, nontender, no organomegaly. Extremities are nonedematous and both femoral and pedal pulses are normal. 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 No focal weakness. - Constitutional Vitals: Temp Pulse Resp BP Pulse Ox 98.2 F 95 H 18 149/70 99 04/29/19 04:41 04/29/19 04:41 04/29/19 04:41 04/29/19 04:41 04/29/19 04:41 General appearance: Present: no acute distress, well-nourished Results - Labs CBC & Chem 7: 04/29/19 03:53 04/29/19 03:53 Labs: Laboratory Last Values WBC 7.0 K/mm3 (4.5-11.0) 04/29/19 03:53 RBC 3.20 M/mm3 (3.65-5.03) L 04/29/19 03:53 Hgb 8.8 gm/dl (11.8-15.2) L 04/29/19 03:53 Hct 27.6 % (35.5-45.6) L 04/29/19 03:53 MCV 86 fl (84-94) 04/29/19 03:53 MCH 28 pg (28-32) 04/29/19 03:53 MCHC 32 % (32-34) 04/29/19 03:53 RDW 20.3 % (13.2-15.2) H 04/29/19 03:53 Plt Count 233 K/mm3 (140-440) 04/29/19 03:53 Lymph % (Auto) 16.3 % (13.4-35.0) 04/28/19 12:17 [place] % (Auto) 7.7 % (0.0-7.3) H 04/28/19 12:17 Eos % (Auto) 4.0 % (0.0-4.3) 04/28/19 12:17 Baso % (Auto) 0.7 % (0.0-1.8) 04/28/19 12:17 Lymph # 1.1 K/mm3 (1.2-5.4) L 04/28/19 12:17 [place] # 0.5 K/mm3 (0.0-0.8) 04/28/19 12:17 Eos # 0.3 K/mm3 (0.0-0.4) 04/28/19 12:17 Baso # 0.0 K/mm3 (0.0-0.1) 04/28/19 12:17 Add Manual Diff Complete 04/29/19 03:53 Total Counted 100 04/29/19 03:53 Seg Neutrophils % Manager Case 04/29/19 03:53 Seg Neuts % (Manual) 97.0 % (40.0-70.0) H 04/29/19 03:53 Band Neutrophils % 0 % 04/29/19 03:53 Lymphocytes % (Manual) 2.0 % (13.4-35.0) L 04/29/19 03:53 Reactive Lymphs % (Man) 0 % 04/29/19 03:53 Monocytes % (Manual) 0 % (0.0-7.3) 04/29/19 03:53 Eosinophils % (Manual) 0 % (0.0-4.3) 04/29/19 03:53 Basophils % (Manual) 0 % (0.0-1.8) 04/29/19 03:53 Metamyelocytes % 1.0 % 04/29/19 03:53 Myelocytes % 0 % 04/29/19 03:53 Promyelocytes % 0 % 04/29/19 03:53 Blast Cells % 0 % 04/29/19 03:53 Nucleated RBC % Not Reportable 04/29/19 03:53 Seg Neutrophils # 5.0 K/mm3 (1.8-7.7) 04/28/19 12:17 Seg Neutrophils # Man 6.8 K/mm3 (1.8-7.7) 04/29/19 03:53 Band Neutrophils # 0.0 K/mm3 04/29/19 03:53 Lymphocytes # (Manual) 0.1 K/mm3 (1.2-5.4) L 04/29/19 03:53 Abs React Lymphs (Man) 0.0 K/mm3 04/29/19 03:53 Monocytes # (Manual) 0.0 K/mm3 (0.0-0.8) 04/29/19 03:53 Eosinophils # (Manual) 0.0 K/mm3 (0.0-0.4) 04/29/19 03:53 Basophils # (Manual) 0.0 K/mm3 (0.0-0.1) 04/29/19 03:53 Metamyelocytes # 0.1 K/mm3 04/29/19 03:53 Myelocytes # 0.0 K/mm3 04/29/19 03:53 Promyelocytes # 0.0 K/mm3 04/29/19 03:53 Blast Cells # 0.0 K/mm3 04/29/19 03:53 WBC Morphology Not Reportable 04/29/19 03:53 Hypersegmented Neuts Not Reportable 04/29/19 03:53 Hyposegmented Neuts Not Reportable 04/29/19 03:53 Hypogranular Neuts Not Reportable 04/29/19 03:53 Smudge Cells Not Reportable 04/29/19 03:53 Toxic Granulation Not Reportable 04/29/19 03:53 Toxic Vacuolation Not Reportable 04/29/19 03:53 Dohle Bodies Not Reportable 04/29/19 03:53 Pelger-Huet Anomaly Not Reportable 04/29/19 03:53 Maida Rods Not Reportable 04/29/19 03:53 Platelet Estimate Consistent w auto 04/29/19 03:53 Clumped Platelets Not Reportable 04/29/19 03:53 Plt Clumps, EDTA Not Reportable 04/29/19 03:53 Large Platelets Not Reportable 04/29/19 03:53 Giant Platelets Not Reportable 04/29/19 03:53 Platelet Satelliting Not Reportable 04/29/19 03:53 Plt Morphology Comment Not Reportable 04/29/19 03:53 RBC Morphology Not Reportable 04/29/19 03:53 Dimorphic RBCs Not Reportable 04/29/19 03:53 Polychromasia Rare 04/29/19 03:53 Hypochromasia Not Reportable 04/29/19 03:53 Poikilocytosis Not Reportable 04/29/19 03:53 Anisocytosis Not Reportable 04/29/19 03:53 Microcytosis Few 04/29/19 03:53 Macrocytosis Few 04/29/19 03:53 Spherocytes Not Reportable 04/29/19 03:53 Pappenheimer Bodies Not Reportable 04/29/19 03:53 Sickle Cells Not Reportable 04/29/19 03:53 Target Cells Not Reportable 04/29/19 03:53 Tear Drop Cells Rare 04/29/19 03:53 Ovalocytes Not Reportable 04/29/19 03:53 Helmet Cells Not Reportable 04/29/19 03:53 Duenas-[place] Bodies Not Reportable 04/29/19 03:53 [place] Rings Not Reportable 04/29/19 03:53 Surjit Cells Not Reportable 04/29/19 03:53 Bite Cells Not Reportable 04/29/19 03:53 Crenated Cell Not Reportable 04/29/19 03:53 Elliptocytes Few 04/29/19 03:53 Acanthocytes (Spur) Not Reportable 04/29/19 03:53 Rouleaux Not Reportable 04/29/19 03:53 Hemoglobin C Crystals Not Reportable 04/29/19 03:53 Schistocytes Not Reportable 04/29/19 03:53 Malaria parasites Not Reportable 04/29/19 03:53 Bc Bodies Not Reportable 04/29/19 03:53 Hem Pathologist Commnt No 04/29/19 03:53 PT 13.4 Sec. (12.2-14.9) 04/28/19 12:17 INR 1.03 (0.87-1.13) 04/28/19 12:17 APTT 37.9 Sec. (24.2-36.6) H 04/28/19 12:17 Heparin Anti-Xa Level 0.35 U.I./ml (0.3-0.7) 04/29/19 05:41 POC ABG pH 7.430 (7.35-7.45) 04/28/19 13:00 POC ABG pCO2 47.1 (35-45) H 04/28/19 13:00 POC ABG pO2 76 (80-105) L 04/28/19 13:00 POC ABG HCO3 31.2 (22-26 mml/L) 04/28/19 13:00 POC ABG Total CO2 33 (23-27mmol/L) 04/28/19 13:00 POC ABG O2 Sat 95 04/28/19 13:00 POC ABG Base Excess 7 ((-2) - (+3)mmol/L) 04/28/19 13:00 VBG pH 7.373 (7.320-7.420) 04/28/19 12:17 FiO2 28 % 04/28/19 13:00 Sodium 133 mmol/L (137-145) L 04/29/19 03:53 Potassium 4.4 mmol/L (3.6-5.0) 04/29/19 03:53 Chloride 92.2 mmol/L (98-107) L 04/29/19 03:53 Carbon Dioxide 23 mmol/L (22-30) 04/29/19 03:53 Anion Gap 22 mmol/L 04/29/19 03:53 BUN 36 mg/dL (9-20) H 04/29/19 03:53 Creatinine 0.9 mg/dL (0.8-1.5) 04/29/19 03:53 Estimated GFR > 60 ml/min 04/29/19 03:53 BUN/Creatinine Ratio 40 % 04/29/19 03:53 Glucose 388 mg/dL (75-100) H 04/29/19 03:53 POC Glucose 244 (70-105) H 04/29/19 08:19 Hemoglobin A1c 6.2 % (4-6) H 04/28/19 12:17 Lactic Acid 1.80 mmol/L (0.7-2.0) 04/29/19 07:35 Calcium 9.4 mg/dL (8.4-10.2) 04/29/19 03:53 Total Bilirubin 0.30 mg/dL (0.1-1.2) 04/29/19 03:53 AST 10 units/L (5-40) 04/29/19 03:53 ALT 10 units/L (7-56) 04/29/19 03:53 Alkaline Phosphatase 78 units/L (35-129) 04/29/19 03:53 Troponin T < 0.010 ng/mL (0.00-0.029) 04/28/19 12:29 NT-Pro-B Natriuret Pep 97.70 pg/mL (0-900) 04/28/19 12:29 Total Protein 7.1 g/dL (6.3-8.2) 04/29/19 03:53 Albumin 3.8 g/dL (3.9-5) L 04/29/19 03:53 Albumin/Globulin Ratio 1.2 % 04/29/19 03:53 Urine Color Straw (Yellow) 04/28/19 14:49 Urine Turbidity Clear (Clear) 04/28/19 14:49 Urine pH 6.0 (5.0-7.0) 04/28/19 14:49 Ur Specific [place] 1.048 (1.003-1.030) H 04/28/19 14:49 Urine Protein <15 mg/dl mg/dL (Negative) 04/28/19 14:49 Urine Glucose (UA) Neg mg/dL (Negative) 04/28/19 14:49 Urine Ketones Neg mg/dL (Negative) 04/28/19 14:49 Urine Blood Neg (Negative) 04/28/19 14:49 Urine Nitrite Neg (Negative) 04/28/19 14:49 Urine Bilirubin Neg (Negative) 04/28/19 14:49 Urine Urobilinogen < 2.0 mg/dL (<2.0) 04/28/19 14:49 Ur Leukocyte Esterase Neg (Negative) 04/28/19 14:49 Urine WBC (Auto) 1.0 /HPF (0.0-6.0) 04/28/19 14:49 Urine RBC (Auto) 2.0 /HPF (0.0-6.0) 04/28/19 14:49 U Epithel Cells (Auto) < 1.0 /HPF (0-13.0) 04/28/19 14:49 Urine Mucus Few /HPF 04/28/19 14:49 Active Medications - Current Medications Current Medications: Generic Name Dose Route Start Last Admin Trade Name Freq PRN Reason Stop Dose Admin Acetaminophen 650 mg 04/28/19 20:50 Tylenol PO Q4H PRN Pain MILD(1-3)/Fever >100.5/ANTON Albuterol/Ipratropium 1 ampul 04/29/19 12:00 Duoneb *Not For Prn Use* IH QIDRT JOAQUIN Apixaban 10 mg 04/29/19 10:00 Eliquis PO Q12HR [facility] Protocol Atorvastatin Calcium 40 mg 04/28/19 22:00 04/28/19 21:30 Lipitor PO 40 mg QHS JOAQUIN Administration Cholecalciferol 1,000 unit 04/29/19 10:00 Vitamin D3 PO QDAY [facility] Clopidogrel Bisulfate 75 mg 04/29/19 10:00 Plavix PO QDAY [facility] Cyanocobalamin 1,000 mcg 04/29/19 10:00 Vitamin B-12 PO DAILY [facility] Famotidine 20 mg 04/28/19 22:00 04/28/19 21:29 Pepcid IV 20 mg BID JOAQUIN Administration Finasteride 5 mg 04/29/19 10:00 Proscar PO QDAY JOAQUIN Furosemide 40 mg 04/29/19 10:00 Lasix PO QDAY JOAQUIN Glipizide 10 mg 04/28/19 22:00 04/28/19 21:29 Glucotrol PO 10 mg BID JOAQUIN Administration Sodium Chloride 1,000 mls @ 75 mls/hr 04/28/19 22:00 Nacl 0.9% 1000 Ml IV 04/29/19 21:59 DIRECT JOAQUIN Insulin Human Lispro 0 unit 04/28/19 22:00 04/29/19 08:22 Humalog SUB-Q 3 unit ACHS [facility] Administration Protocol Lisinopril 5 mg 04/28/19 22:00 04/28/19 21:30 Zestril PO 5 mg QHS JOAQUIN Administration Metformin HCl 500 mg 04/28/19 22:00 04/28/19 21:29 Glucophage PO 500 mg BID JOAQUIN Administration Methylprednisolone Sodium Succinate 40 mg 04/29/19 09:00 Solu-Medrol IV Q8HR JOAQUIN Metoprolol Tartrate 25 mg 04/28/19 22:00 04/28/19 21:30 Metoprolol PO 25 mg BID JOAQUIN Administration Ondansetron HCl 4 mg 04/28/19 20:50 Zofran IV Q8H PRN Nausea And Vomiting Oxycodone/Acetaminophen 2 tab 04/29/19 08:57 Percocet 5/325 PO Q6H PRN Pain, Moderate (4-6) Polyethylene Glycol 17 gm 04/29/19 10:00 Miralax 3350 PO QDAY [facility] Sodium Chloride 10 ml 04/28/19 15:10 Sodium Chloride Flush Syringe 10 Ml IV PRN PRN LINE FLUSH Sodium Chloride 10 ml 04/28/19 22:00 04/28/19 22:35 Sodium Chloride Flush Syringe 10 Ml IV Not Given BID JOAQUIN Sodium Chloride 10 ml 04/28/19 20:50 Sodium Chloride Flush Syringe 10 Ml IV PRN PRN LINE FLUSH Tamsulosin HCl 0.4 mg 04/29/19 10:00 Flomax PO QDAY [facility] Triamterene/HCTZ 1 each 04/29/19 10:00 Maxzide-25 PO QAM [facility]
[2019-04-29] MEDS ORDERED: HYDROCHLOROTHIAZID PO SCH (10:00)
[2019-04-29] MEDS ORDERED: TRIAMTERENE PO SCH (10:00)
[2019-04-29] MEDS ORDERED: POLYETHYLENE GLYCOL 17 GM PO SCH (10:00)
[2019-04-29] MEDS: FUROSEMIDE 40 MG TAB PO SCH (10:44)
[2019-04-29] MEDS: CHOLECALCIFEROL (VIT D3) 1000 UNIT TAB PO SCH (10:44)
[2019-04-29] MEDS: METOPROLOL TARTRATE 25 MG TAB PO SCH ×2 (10:44→21:06)
[2019-04-29] MEDS: APIXABAN 5 MG TAB PO SCH ×2 (10:44→21:01)
[2019-04-29] MEDS: FINASTERIDE 5 MG TAB PO SCH (10:44)
[2019-04-29] MEDS: metFORMIN 500 MG TAB PO SCH ×3 (10:44→21:02)
[2019-04-29] MEDS: FAMOTIDINE 20 MG/2 ML INJ IV SCH ×2 (10:45→21:00)
[2019-04-29] MEDS: methylPREDNISolone Sod Succinate 40 MG/1 ML INJ IV SCH ×3 (10:45→21:01)
[2019-04-29] MEDS: TRIAMTER/HCTZ 37.5-25 MG TAB PO SCH (10:45)
[2019-04-29] MEDS: CLOPIDOGREL 75 MG TAB PO SCH (10:45)
[2019-04-29] MEDS: POLYETHYLENE GLYCOL 3350 17 GM POWDER PO SCH (10:45)
[2019-04-29] MEDS: CYANOCOBALAMIN (VIT B-12) 1000 MCG TAB PO SCH (10:45)
[2019-04-29] MEDS: glipiZIDE 10 MG TAB PO SCH ×2 (10:45→21:01)
[2019-04-29] MEDS: TAMSULOSIN 0.4 MG CAP PO SCH (10:45)
[2019-04-29] MEDS: IPRATROPIUM/ALBUTEROL SULFATE 3 ML AMPUL.NEB IH SCH ×3 (14:10→21:51)
[2019-04-29] MEDS: LISINOPRIL 5 MG TAB PO SCH (21:01)
[2019-04-30] MEDS: oxyCODONE /ACETAMINOPHEN 5-325MG TAB PO PRN ×3 (03:07→17:08)
[2019-04-30] MEDS: methylPREDNISolone Sod Succinate 40 MG/1 ML INJ IV SCH (05:59)
[2019-04-30 07:44] LABS: Hematocrit 28.6 % (35.5-45.6)
[2019-04-30] MEDS: IPRATROPIUM/ALBUTEROL SULFATE 3 ML AMPUL.NEB IH SCH ×3 (07:51→20:43)
[2019-04-30] MEDS: INSULIN LISPRO 100 UNIT/ML SUB-Q SCH ×4 (08:00→21:10)
[2019-04-30] MEDS ORDERED: INSULIN GLARGINE 100 UNITS/ML SUB-Q SCH (10:00)
[2019-04-30] MEDS: CYANOCOBALAMIN (VIT B-12) 1000 MCG TAB PO SCH (10:01)
[2019-04-30] MEDS: APIXABAN 5 MG TAB PO SCH ×2 (10:01→21:08)
[2019-04-30] MEDS: CHOLECALCIFEROL (VIT D3) 1000 UNIT TAB PO SCH (10:01)
[2019-04-30] MEDS: glipiZIDE 10 MG TAB PO SCH ×2 (10:01→21:09)
[2019-04-30] MEDS: POLYETHYLENE GLYCOL 3350 17 GM POWDER PO SCH (10:01)
[2019-04-30] MEDS: METOPROLOL TARTRATE 25 MG TAB PO SCH ×2 (10:01→21:09)
[2019-04-30] MEDS: FINASTERIDE 5 MG TAB PO SCH (10:01)
[2019-04-30] MEDS: FUROSEMIDE 40 MG TAB PO SCH (10:01)
[2019-04-30] MEDS: CLOPIDOGREL 75 MG TAB PO SCH (10:01)
--- NOTE | 2019-04-30 10:47 | Progress Note ---
Assessment and Plan Assessment and plan: Possible acute pulmonary embolism -CTA chest neg for large embolus, but small emboli could not be excluded. -will do RTLE venous duplex US to assess for DVT -Off heparin drip -Continue Eliquis Acute COPD exacerbation -Improving -Continue steroid taper and neb tx Positive blood culture -1 out of 2 bottles obtained on 04/28 positive for gram +ve cocci in clusters -probably a contaminant, follow-up Hyponatremia -We'll monitor T2DM with hyperglycemia -Insulin regimen adjusted -Monitor and adjust as needed Hypertension -Controlled on current antihypertensives BPH (benign prostatic hyperplasia) -Continue finasteride and tamsulosin Hyperlipidemia -Continue statins Vitamin D deficiency -Continue vitamin D supplements Coronary artery disease -Stable -Continue home meds Chronic CHF (congestive heart failure) -Type unknown -No echo on file DVT prophylaxis - Continue therapeutic eliquis Disposition: Follow-up blood culture results and plan for discharge if a contaminant History Interval history: Patient reports feeling better today. He denies chest pain or shortness of breath. Hospitalist Physical - Constitutional Vitals: Temp Pulse Resp BP Pulse Ox 97.6 F 88 20 123/65 95 04/30/19 04:59 04/30/19 04:52 04/30/19 04:52 04/30/19 04:52 04/30/19 04:52 General appearance: Present: no acute distress, obese - EENT Eyes: Present: PERRL, EOM intact ENT: hearing intact, clear oral mucosa - Neck Neck: Present: supple - Respiratory Respiratory effort: normal Respiratory: bilateral: wheezing - Cardiovascular Rhythm: regular Heart Sounds: Present: S1 & S2 - Extremities Extremity abnormal: edema (RTLE) - Abdominal General gastrointestinal: soft, non-tender, normal bowel sounds - Integumentary Integumentary: Present: clear, warm, dry - Psychiatric Psychiatric: appropriate mood/affect - Neurologic Neurologic: other (Pt is bedridden) Results - Labs CBC & Chem 7: 04/30/19 07:16 04/29/19 03:53 Labs: Laboratory Last Values WBC 7.0 K/mm3 (4.5-11.0) 04/29/19 03:53 RBC 3.20 M/mm3 (3.65-5.03) L 04/29/19 03:53 Hgb 9.0 gm/dl (11.8-15.2) L 04/30/19 07:16 Hct 28.6 % (35.5-45.6) L 04/30/19 07:16 MCV 86 fl (84-94) 04/29/19 03:53 MCH 28 pg (28-32) 04/29/19 03:53 MCHC 32 % (32-34) 04/29/19 03:53 RDW 20.3 % (13.2-15.2) H 04/29/19 03:53 Plt Count 235 K/mm3 (140-440) 04/30/19 07:16 Lymph % (Auto) 16.3 % (13.4-35.0) 04/28/19 12:17 [place] % (Auto) 7.7 % (0.0-7.3) H 04/28/19 12:17 Eos % (Auto) 4.0 % (0.0-4.3) 04/28/19 12:17 Baso % (Auto) 0.7 % (0.0-1.8) 04/28/19 12:17 Lymph # 1.1 K/mm3 (1.2-5.4) L 04/28/19 12:17 [place] # 0.5 K/mm3 (0.0-0.8) 04/28/19 12:17 Eos # 0.3 K/mm3 (0.0-0.4) 04/28/19 12:17 Baso # 0.0 K/mm3 (0.0-0.1) 04/28/19 12:17 Add Manual Diff Complete 04/29/19 03:53 Total Counted 100 04/29/19 03:53 Seg Neutrophils % Nurse Extern 04/29/19 03:53 Seg Neuts % (Manual) 97.0 % (40.0-70.0) H 04/29/19 03:53 Band Neutrophils % 0 % 04/29/19 03:53 Lymphocytes % (Manual) 2.0 % (13.4-35.0) L 04/29/19 03:53 Reactive Lymphs % (Man) 0 % 04/29/19 03:53 Monocytes % (Manual) 0 % (0.0-7.3) 04/29/19 03:53 Eosinophils % (Manual) 0 % (0.0-4.3) 04/29/19 03:53 Basophils % (Manual) 0 % (0.0-1.8) 04/29/19 03:53 Metamyelocytes % 1.0 % 04/29/19 03:53 Myelocytes % 0 % 04/29/19 03:53 Promyelocytes % 0 % 04/29/19 03:53 Blast Cells % 0 % 04/29/19 03:53 Nucleated RBC % Not Reportable 04/29/19 03:53 Seg Neutrophils # 5.0 K/mm3 (1.8-7.7) 04/28/19 12:17 Seg Neutrophils # Man 6.8 K/mm3 (1.8-7.7) 04/29/19 03:53 Band Neutrophils # 0.0 K/mm3 04/29/19 03:53 Lymphocytes # (Manual) 0.1 K/mm3 (1.2-5.4) L 04/29/19 03:53 Abs React Lymphs (Man) 0.0 K/mm3 04/29/19 03:53 Monocytes # (Manual) 0.0 K/mm3 (0.0-0.8) 04/29/19 03:53 Eosinophils # (Manual) 0.0 K/mm3 (0.0-0.4) 04/29/19 03:53 Basophils # (Manual) 0.0 K/mm3 (0.0-0.1) 04/29/19 03:53 Metamyelocytes # 0.1 K/mm3 04/29/19 03:53 Myelocytes # 0.0 K/mm3 04/29/19 03:53 Promyelocytes # 0.0 K/mm3 04/29/19 03:53 Blast Cells # 0.0 K/mm3 04/29/19 03:53 WBC Morphology Not Reportable 04/29/19 03:53 Hypersegmented Neuts Not Reportable 04/29/19 03:53 Hyposegmented Neuts Not Reportable 04/29/19 03:53 Hypogranular Neuts Not Reportable 04/29/19 03:53 Smudge Cells Not Reportable 04/29/19 03:53 Toxic Granulation Not Reportable 04/29/19 03:53 Toxic Vacuolation Not Reportable 04/29/19 03:53 Dohle Bodies Not Reportable 04/29/19 03:53 Pelger-Huet Anomaly Not Reportable 04/29/19 03:53 Maida Rods Not Reportable 04/29/19 03:53 Platelet Estimate Consistent w auto 04/29/19 03:53 Clumped Platelets Not Reportable 04/29/19 03:53 Plt Clumps, EDTA Not Reportable 04/29/19 03:53 Large Platelets Not Reportable 04/29/19 03:53 Giant Platelets Not Reportable 04/29/19 03:53 Platelet Satelliting Not Reportable 04/29/19 03:53 Plt Morphology Comment Not Reportable 04/29/19 03:53 RBC Morphology Not Reportable 04/29/19 03:53 Dimorphic RBCs Not Reportable 04/29/19 03:53 Polychromasia Rare 04/29/19 03:53 Hypochromasia Not Reportable 04/29/19 03:53 Poikilocytosis Not Reportable 04/29/19 03:53 Anisocytosis Not Reportable 04/29/19 03:53 Microcytosis Few 04/29/19 03:53 Macrocytosis Few 04/29/19 03:53 Spherocytes Not Reportable 04/29/19 03:53 Pappenheimer Bodies Not Reportable 04/29/19 03:53 Sickle Cells Not Reportable 04/29/19 03:53 Target Cells Not Reportable 04/29/19 03:53 Tear Drop Cells Rare 04/29/19 03:53 Ovalocytes Not Reportable 04/29/19 03:53 Helmet Cells Not Reportable 04/29/19 03:53 Duenas-[place] Bodies Not Reportable 04/29/19 03:53 [place] Rings Not Reportable 04/29/19 03:53 Surjit Cells Not Reportable 04/29/19 03:53 Bite Cells Not Reportable 04/29/19 03:53 Crenated Cell Not Reportable 04/29/19 03:53 Elliptocytes Few 04/29/19 03:53 Acanthocytes (Spur) Not Reportable 04/29/19 03:53 Rouleaux Not Reportable 04/29/19 03:53 Hemoglobin C Crystals Not Reportable 04/29/19 03:53 Schistocytes Not Reportable 04/29/19 03:53 Malaria parasites Not Reportable 04/29/19 03:53 Bc Bodies Not Reportable 04/29/19 03:53 Hem Pathologist Commnt No 04/29/19 03:53 PT 13.4 Sec. (12.2-14.9) 04/28/19 12:17 INR 1.03 (0.87-1.13) 04/28/19 12:17 APTT 37.9 Sec. (24.2-36.6) H 04/28/19 12:17 Heparin Anti-Xa Level 0.35 U.I./ml (0.3-0.7) 04/29/19 05:41 POC ABG pH 7.430 (7.35-7.45) 04/28/19 13:00 POC ABG pCO2 47.1 (35-45) H 04/28/19 13:00 POC ABG pO2 76 (80-105) L 04/28/19 13:00 POC ABG HCO3 31.2 (22-26 mml/L) 04/28/19 13:00 POC ABG Total CO2 33 (23-27mmol/L) 04/28/19 13:00 POC ABG O2 Sat 95 04/28/19 13:00 POC ABG Base Excess 7 ((-2) - (+3)mmol/L) 04/28/19 13:00 VBG pH 7.373 (7.320-7.420) 04/28/19 12:17 FiO2 28 % 04/28/19 13:00 Sodium 133 mmol/L (137-145) L 04/29/19 03:53 Potassium 4.4 mmol/L (3.6-5.0) 04/29/19 03:53 Chloride 92.2 mmol/L (98-107) L 04/29/19 03:53 Carbon Dioxide 23 mmol/L (22-30) 04/29/19 03:53 Anion Gap 22 mmol/L 04/29/19 03:53 BUN 36 mg/dL (9-20) H 04/29/19 03:53 Creatinine 0.9 mg/dL (0.8-1.5) 04/29/19 03:53 Estimated GFR > 60 ml/min 04/29/19 03:53 BUN/Creatinine Ratio 40 % 04/29/19 03:53 Glucose 388 mg/dL (75-100) H 04/29/19 03:53 POC Glucose 266 (70-105) H 04/30/19 07:47 Hemoglobin A1c 6.2 % (4-6) H 04/28/19 12:17 Lactic Acid 1.80 mmol/L (0.7-2.0) 04/29/19 07:35 Calcium 9.4 mg/dL (8.4-10.2) 04/29/19 03:53 Total Bilirubin 0.30 mg/dL (0.1-1.2) 04/29/19 03:53 AST 10 units/L (5-40) 04/29/19 03:53 ALT 10 units/L (7-56) 04/29/19 03:53 Alkaline Phosphatase 78 units/L (35-129) 04/29/19 03:53 Troponin T < 0.010 ng/mL (0.00-0.029) 04/28/19 12:29 NT-Pro-B Natriuret Pep 97.70 pg/mL (0-900) 04/28/19 12:29 Total Protein 7.1 g/dL (6.3-8.2) 04/29/19 03:53 Albumin 3.8 g/dL (3.9-5) L 04/29/19 03:53 Albumin/Globulin Ratio 1.2 % 04/29/19 03:53 Urine Color Straw (Yellow) 04/28/19 14:49 Urine Turbidity Clear (Clear) 04/28/19 14:49 Urine pH 6.0 (5.0-7.0) 04/28/19 14:49 Ur Specific [place] 1.048 (1.003-1.030) H 04/28/19 14:49 Urine Protein <15 mg/dl mg/dL (Negative) 04/28/19 14:49 Urine Glucose (UA) Neg mg/dL (Negative) 04/28/19 14:49 Urine Ketones Neg mg/dL (Negative) 04/28/19 14:49 Urine Blood Neg (Negative) 04/28/19 14:49 Urine Nitrite Neg (Negative) 04/28/19 14:49 Urine Bilirubin Neg (Negative) 04/28/19 14:49 Urine Urobilinogen < 2.0 mg/dL (<2.0) 04/28/19 14:49 Ur Leukocyte Esterase Neg (Negative) 04/28/19 14:49 Urine WBC (Auto) 1.0 /HPF (0.0-6.0) 04/28/19 14:49 Urine RBC (Auto) 2.0 /HPF (0.0-6.0) 04/28/19 14:49 U Epithel Cells (Auto) < 1.0 /HPF (0-13.0) 04/28/19 14:49 Urine Mucus Few /HPF 04/28/19 14:49 Active Medications - Current Medications Current Medications: Generic Name Dose Route Start Last Admin Trade Name Freq PRN Reason Stop Dose Admin Acetaminophen 650 mg 04/28/19 20:50 Tylenol PO Q4H PRN Pain MILD(1-3)/Fever >100.5/ANTON Albuterol/Ipratropium 1 ampul 04/29/19 12:00 04/30/19 07:51 Duoneb *Not For Prn Use* IH 1 ampul QIDRT JOAQUIN Administration Apixaban 10 mg 04/29/19 10:00 04/30/19 10:01 Eliquis PO 05/05/19 22:01 10 mg Q12HR JOAQUIN Administration Protocol Apixaban 5 mg 05/06/19 10:00 Eliquis PO Q12HR JOAQUIN Atorvastatin Calcium 40 mg 04/28/19 22:00 04/29/19 21:01 Lipitor PO 40 mg QHS JOAQUIN Administration Cholecalciferol 1,000 unit 04/29/19 10:00 04/30/19 10:01 Vitamin D3 PO 1,000 unit QDAY JOAQUIN Administration Clopidogrel Bisulfate 75 mg 04/29/19 10:00 04/30/19 10:01 Plavix PO 75 mg QDAY JOAQUIN Administration Cyanocobalamin 1,000 mcg 04/29/19 10:00 04/30/19 10:01 Vitamin B-12 PO 1,000 mcg DAILY JOAQUIN Administration Famotidine 20 mg 04/28/19 22:00 04/29/19 21:00 Pepcid IV 20 mg BID JOAQUIN Administration Finasteride 5 mg 04/29/19 10:00 04/30/19 10:01 Proscar PO 5 mg QDAY JOAQUIN Administration Furosemide 40 mg 04/29/19 10:00 04/30/19 10:01 Lasix PO 40 mg QDAY JOAQUIN Administration Glipizide 10 mg 04/28/19 22:00 04/30/19 10:01 Glucotrol PO 10 mg BID JOAQUIN Administration Insulin Glargine 20 units 04/30/19 10:00 Lantus SUB-Q DAILY JOAQUIN Insulin Human Lispro 0 unit 04/28/19 22:00 04/29/19 21:11 Humalog SUB-Q 8 unit ACHS JOAQUIN Administration Protocol Lisinopril 5 mg 04/28/19 22:00 04/29/19 21:01 Zestril PO 5 mg QHS JOAQUIN Administration Metformin HCl 500 mg 04/28/19 22:00 04/29/19 21:02 Glucophage PO Not Given BID [facility] Methylprednisolone Sodium Succinate 40 mg 04/30/19 18:00 Solu-Medrol IV Q12H JOAQUIN Metoprolol Tartrate 25 mg 04/28/19 22:00 04/30/19 10:01 Metoprolol PO 25 mg BID JOAQUIN Administration Ondansetron HCl 4 mg 04/28/19 20:50 Zofran IV Q8H PRN Nausea And Vomiting Oxycodone/Acetaminophen 2 tab 04/29/19 09:00 04/30/19 10:02 Percocet 5/325 PO 2 tab Q6H PRN Administration Pain, Moderate (4-6) Polyethylene Glycol 17 gm 04/29/19 10:00 04/30/19 10:01 Miralax 3350 PO 17 gm QDAY JOAQUIN Administration Sodium Chloride 10 ml 04/28/19 22:00 04/29/19 21:01 Sodium Chloride Flush Syringe 10 Ml IV 10 ml BID JOAQUIN Administration Sodium Chloride 10 ml 04/28/19 20:50 Sodium Chloride Flush Syringe 10 Ml IV PRN PRN LINE FLUSH Tamsulosin HCl 0.4 mg 04/29/19 10:00 04/29/19 10:45 Flomax PO 0.4 mg QDAY JOAQUIN Administration Triamterene/HCTZ 1 each 04/29/19 10:00 04/29/19 10:45 Maxzide-25 PO 1 each QAM JOAQUIN Administration
[2019-04-30] MEDS: FAMOTIDINE 20 MG/2 ML INJ IV SCH (11:52)
[2019-04-30] MEDS: TRIAMTER/HCTZ 37.5-25 MG TAB PO SCH (11:53)
[2019-04-30] MEDS: metFORMIN 500 MG TAB PO SCH (11:53)
[2019-04-30] MEDS: TAMSULOSIN 0.4 MG CAP PO SCH (12:11)
[2019-04-30] MEDS ORDERED: INSULIN GLARGINE 100 UNITS/ML SUB-Q ONE (16:57)
[2019-04-30] MEDS ORDERED: methylPREDNISolone Sod Succinate 40 MG/1 ML INJ IV SCH ×2 (18:00→22:00)
--- NOTE | 2019-04-30 18:33 | Vascular Lab Report ---
DUPLEX DOPPLER LOWER EXTREMITY VEINS, RIGHT INDICATION: DVT. History of pulmonary embolus after knee surgery TECHNIQUE: Duplex doppler imaging was performed through the veins of the right lower extremity using venous comp ression and other maneuvers. COMPARISON: None available. FINDINGS: Common Femoral vein: Negative. Femoral vein: Negative. Popliteal vein: Negative. Calf veins: Negative. Additional findings: None. IMPRESSION: 1. No sonographic evidence for DVT in the right lower extremity. Signer Name: Derrick Miles MD Signed: 04/30/2019 6:28 PM Workstation Name: [id number]
[2019-04-30] MEDS: LISINOPRIL 5 MG TAB PO SCH (21:08)
[2019-04-30] MEDS: INSULIN GLARGINE 100 UNITS/ML SUB-Q SCH (21:14)
[2019-05-01] MEDS: oxyCODONE /ACETAMINOPHEN 5-325MG TAB PO PRN ×4 (01:01→18:38)
[2019-05-01 06:38] LABS: Hemoglobin 8.7 gm/dl (11.8-15.2); Mean Corpuscular HGB Conc 32 % (32-34); Mean Corpuscular Volume 85 fl (84-94); Platelet Count 194 K/mm3 (140-440); Red Blood Count 3.17 M/mm3 (3.65-5.03); Red Cell Distribution Width 19.4 % (13.2-15.2)
[2019-05-01 06:55] LABS: BUN/Creatinine Ratio 42; Blood Urea Nitrogen 38 mg/dL (9-20); Calcium 9.8 mg/dL (8.4-10.2); Hemolysis Index 3
[2019-05-01] MEDS: IPRATROPIUM/ALBUTEROL SULFATE 3 ML AMPUL.NEB IH SCH ×2 (07:41→13:49)
[2019-05-01] MEDS: INSULIN LISPRO 100 UNIT/ML SUB-Q SCH ×3 (09:43→17:10)
[2019-05-01] MEDS: FUROSEMIDE 40 MG TAB PO SCH (09:49)
[2019-05-01] MEDS: METOPROLOL TARTRATE 25 MG TAB PO SCH (09:49)
[2019-05-01] MEDS: APIXABAN 5 MG TAB PO SCH (09:50)
[2019-05-01] MEDS: CLOPIDOGREL 75 MG TAB PO SCH (09:50)
[2019-05-01] MEDS: glipiZIDE 10 MG TAB PO SCH (09:50)
[2019-05-01] MEDS: TAMSULOSIN 0.4 MG CAP PO SCH (09:50)
[2019-05-01] MEDS: INSULIN GLARGINE 100 UNITS/ML SUB-Q SCH (09:50)
[2019-05-01] MEDS: CHOLECALCIFEROL (VIT D3) 1000 UNIT TAB PO SCH (09:50)
[2019-05-01] MEDS: FINASTERIDE 5 MG TAB PO SCH (09:50)
[2019-05-01] MEDS: CYANOCOBALAMIN (VIT B-12) 1000 MCG TAB PO SCH (09:50)
[2019-05-01] MEDS: POLYETHYLENE GLYCOL 3350 17 GM POWDER PO SCH (09:51)
[2019-05-01] MEDS ORDERED: predniSONE 20 MG TAB PO SCH (10:00)
[2019-05-01 12:06] VITALS: BP 138/65
--- NOTE | 2019-05-01 14:20 | Discharge Summary ---
Providers - Providers Date of Admission: 04/28/19 15:10 Attending physician: NA PRO MD Primary care physician: [employer] Hospitalization Condition: Stable Hospital course: 73-year-old man who presented to the hospital with shortness of breath. He reported a history of knee surgery by orthopedic surgeon a month prior. The patient admits that he had been treated for presumptive bronchitis as an outpatient and was concerned when shortness of breath got worse. Given her recent orthopedic surgery does concern for PE. Patient went on to have a CT angiogram which was negative for large PE, he also went on to have lower extremity Dopplers were negative for lower extremity DVT. The patient was reassured and discharged. His shortness of breath is most likely due to bronchitis as previously thought by his outpatient doctors. He is being discharged steroids and breathing treatments. -He was continued on his home medications for chronic conditions Preventative health counseling performed for 17 minutes Diagnosis Shortness of breath due to acute on chronic bronchitis PE ruled out COPD exacerbation Hyponatremia Type 2 diabetes Hypertension BPH Vitamin D deficiency History of CAD Chronic CHF, stable Disposition: DC-01 TO HOME OR SELFCARE Time spent for discharge: 33mins Core Measure Documentation - Palliative Care Palliative Care/ Comfort Measures: Not Applicable - Core Measures Any of the following diagnoses?: none Exam - Constitutional Vitals: Temp Pulse Resp BP Pulse Ox 97.3 F L 88 18 138/65 91 05/01/19 08:08 05/01/19 14:00 05/01/19 14:00 05/01/19 12:04 05/01/19 12:04 General appearance: Present: no acute distress, well-nourished - EENT Eyes: Present: PERRL ENT: hearing intact, clear oral mucosa - Neck Neck: Present: supple, normal ROM - Respiratory Respiratory effort: normal Respiratory: bilateral: CTA - Cardiovascular Heart Sounds: Present: S1 & S2. Absent: rub, click - Extremities Extremities: pulses symmetrical, No edema Peripheral Pulses: within normal limits - Abdominal General gastrointestinal: Present: soft, non-tender, non-distended, normal bowel sounds Male genitourinary: Present: normal - Integumentary Integumentary: Present: clear, warm, dry - Musculoskeletal Musculoskeletal: gait normal, strength equal bilaterally - Psychiatric Psychiatric: appropriate mood/affect, intact judgment & insight - Neurologic Neurologic: CNII-XII intact, moves all extremities Plan Follow up with: PRIMARY CARE,MD [Primary Care Provider] - 7 Days Prescriptions: Promethazine [Phenergan] 25 mg PO Q6HR PRN #7 tab PRN Reason: Nausea Promethazine HCl [Phenergan SUPPOS] 25 mg RC Q8H #7 supp.rect
[2019-05-06] MEDS ORDERED: APIXABAN 5 MG TAB PO SCH (10:00)
== END 2019-05-01 18:50 | disposition home health service (06) | DRG 202 ==
LOC: ED 11:23 → 4A 15:10
PROVIDERS: ADMIT Internal Medicine; ATTEND Internal Medicine
PROC: 4A033R1 Measurement of Arterial Saturation, Peripheral, Percutaneous Approach (ICD-10-PCS; principal; 2019-04-28)
DX: J20.9 Acute bronchitis, unspecified (principal); E87.1 Hypo-osmolality and hyponatremia; I50.42 Chronic combined systolic (congestive) and diastolic (congestive) heart failure; J44.1 Chronic obstructive pulmonary disease with (acute) exacerbation; Z68.43 Body mass index [BMI] 50.0-59.9, adult; J44.0 Chronic obstructive pulmonary disease with (acute) lower respiratory infection; I11.0 Hypertensive heart disease with heart failure; E78.2 Mixed hyperlipidemia; E55.9 Vitamin D deficiency, unspecified; E66.01 Morbid (severe) obesity due to excess calories; N40.0 Benign prostatic hyperplasia without lower urinary tract symptoms; Z96.653 Presence of artificial knee joint, bilateral; I25.10 Atherosclerotic heart disease of native coronary artery without angina pectoris; Z79.899 Other long term (current) drug therapy; Z88.8 Allergy status to other drugs, medicaments and biological substances; Z88.6 Allergy status to analgesic agent; Z87.891 Personal history of nicotine dependence; Z82.49 Family history of ischemic heart disease and other diseases of the circulatory system; Z83.3 Family history of diabetes mellitus
CPT/HCPCS: 36415; 71045; 71275; 80048; 80053; 81001; 82140; 82803; 82805; 82962; 83036; 83880; 84484; 85007; 85014; 85018; 85025; 85027; 85049; 85520; 85610; 85730; 87040; 87086; 87116; 93005; 93010; 94640; 94644; 94760; 96365; 96375; G0378; A9270-GY; J0696; J1644; J1815; J2405; J2920; J2930; J7040; J7512; Q9967